=== PATIENT | female | born 1940 | race Caucasian/White ===

== ENCOUNTER → 2019-01-03 | Outpatient (CLI) | payer OTHER ==
[~2019-01-03] VITALS: Ht 152.4 cm; Wt 49.9 kg
[~2019-01-03] MED LIST: ADVIL200 M3 PO; ELIQUIS2.5 MG PO; IMODIUM A-D1 MG/5 ML; OXYCODONE HCL 55 MG PO; TUMS PO; VITAMIN D5000 UNIT PO; ZOFRAN4 MG
[2019-01-03 09:03] LABS: ABSOLUTE LYMPHOCYTES 1.1 thou/uL (0.8-5.3); ABSOLUTE MONOCYTES 0.4 thou/uL (0.0-1.2); ABSOLUTE NEUTROPHILS 3.6 thou/uL (1.6-8.1); BASOPHILS 0.7 %; HEMATOCRIT 39.7 % (37.0-47.0); HEMOGLOBIN 13.5 gm/dL (12.0-15.0); LYMPHOCYTES 22.1 %; MCH 30.4 pg (26.0-34.0); MCHC 34.1 g/dL (28.0-37.0); MCV 89.1 fL (80.0-100.0); MONOCYTES 7.1 %; MPV 7.5 fl. (7.2-11.1); NUCLEATED RBCS 0 /100WBC; PLATELET COUNT* 311 thou/uL (150-400); POLYS 70.1 %; RBC 4.45 mil/uL (4.20-5.00); RDW-CV 14.2 % (10.5-14.5); WBC 5.1 thou/uL (4.0-11.0)
[2019-01-03 09:11] LABS: APTT 27.8 Seconds (25.0-31.3); PROTIME 10.1 Seconds (9.20-11.50)
[2019-01-03 09:16] LABS: ALBUMIN 3.5 g/dL (3.4-5.0); CREATININE 1.1 mg/dL (0.6-1.3); POTASSIUM 3.8 mmol/L (3.5-5.1); TOTAL BILIRUBIN 0.7 mg/dL (<0.1-1.0)
[2019-01-03 10:13] LABS: ESR (SEDRATE) 12 mm/hr (0-30)
--- NOTE | 2019-01-03 16:37 | EKG ---
[place] [address] ELECTROCARDIOGRAM REPORT Name: MYLENE GONZALEZ Room: PRE IN [facility]#: [id number] Admission: Attend Phys: Gunjan Chinchilla Discharge: Date of : 42 Report #: [id number] THIS REPORT FOR: //name// [facility] Test Date: 2019-01-03 Test Time: 09:17:11 Pat Name: MYLENE GONZALEZ Department: Room: Gender: F Basting Marker: YM : 1940 Requested By: Toni Curry Order Number: [id number] Reading MD: Candido Ch Measurements Intervals [place] Rate: 65 P: 62 IA: 176 QRS: -12 QRSD: 130 T: 7 QT: 414 QTc: 431 Interpretive Statements Sinus rhythm Probable left atrial enlargement Right bundle branch block Inferior infarct, old Compared to ECG 09/28/2011 10:13:41 Myocardial infarct finding now present First degree AV block no longer present Electronically Signed On 01-03-2019 16:37:04 CDT by Candido Ch [email or web address] <ELECTRONICALLY SIGNED> By: Candido Ch MD, [facility] 01/03/19 1637 6 6 Candido Ch MD, FAC /EPI
== END ==
LOC: M.LAB 08:00 → EDSTATUS 01-14 10:42 → M.PRE 01-14 10:50
PROVIDERS: Orthopaedic Surgery
DX: M16.11 Unilateral primary osteoarthritis, right hip (principal); I45.10 Unspecified right bundle-branch block; I25.2 Old myocardial infarction

== ENCOUNTER 2019-02-18 07:15 | Inpatient (IN) | payer OTHER ==
[2019-02-13 16:47] LABS: ABSOLUTE LYMPHOCYTES 1.4 thou/uL (0.8-5.3); ABSOLUTE MONOCYTES 0.4 thou/uL (0.0-1.2); BASOPHILS 0.7 %; HEMOGLOBIN 13.2 gm/dL (12.0-15.0); LYMPHOCYTES 23.7 %; MCH 30.9 pg (26.0-34.0); MCHC 33.8 g/dL (28.0-37.0); MCV 91.5 fL (80.0-100.0); MONOCYTES 7.3 %; MPV 8.1 fl. (7.2-11.1); NUCLEATED RBCS 0 /100WBC; PLATELET COUNT* 320 thou/uL (150-400); POLYS 68.3 %; RBC 4.26 mil/uL (4.20-5.00); WBC 5.8 thou/uL (4.0-11.0)
[2019-02-13 16:52] LABS: APTT 27.5 Seconds (25.0-31.3); PROTIME 10.2 Seconds (9.20-11.50)
[2019-02-13 16:55] LABS: ALBUMIN 3.5 g/dL (3.4-5.0); CALCIUM 8.6 mg/dL (8.5-10.1); CREATININE 1.2 mg/dL (0.6-1.3); POTASSIUM 3.6 mmol/L (3.5-5.1); TOTAL BILIRUBIN 0.6 mg/dL (<0.1-1.0); TOTAL PROTEIN 7.1 g/dL (6.4-8.2)
[2019-02-13 17:51] LABS: ESR (SEDRATE) 13 mm/hr (0-30)
[~2019-02-18] VITALS: Ht 149.9 cm; Wt 47.6 kg
--- NOTE | ~2019-02-18 | OP ---
[facility] [address] [place] [address] OPERATIVE REPORT Name: MYLENE GONZALEZ Room: [address] IN .R.#: [id number] Admission: 02/18/19 Attend Phys: Gunjan Chinchilla Discharge: Date of : 42 Report #: [id number] THIS REPORT FOR: //name// CC: Charlotte Rodriguez DATE OF SERVICE: 02/18/2019 PREOPERATIVE DIAGNOSIS: Advanced degenerative joint disease of the right hip. POSTOPERATIVE DIAGNOSIS: Advanced degenerative joint disease of the right hip. OPERATION PERFORMED: Right total hip arthroplasty. IMPLANTS: The Biomet total hip system was used with the following components: 1. A size 12 x 144 high offset Taperloc femoral component. 2. A size 40 mm ceramic head with a -3 mm taper adapter. 3. A size 54 mm G7 finned acetabular shell components. 4. Two 6.5 mm bone screws, 25 and 30 mm in length. SURGEON: Toni Curry DO TEAM SUPERVISOR: Hannah King PA-C and Dawit Nagel DO ESTIMATED BLOOD LOSS: 150 mL. ANTIBIOTICS: 2 g IV Ancef given preoperatively. ANESTHESIA: General plus local infiltration of local anesthetic. DRAINS: None. SPECIMENS: Femoral head and neck were sent to pathology. COMPLICATIONS: None. CONDITION: Stable. DISPOSITION: PACU to Med/Surg floor. OPERATIVE INDICATIONS: The patient is a pleasant 78-year-old female followed in the orthopedic clinic regarding her longstanding right hip pain. She had radiographs which were consistent with severe degenerative changes with loss of joint space, subchondral sclerosis, osteophytic changes as well as subchondral cystic changes. She has tried and failed conservative treatment over the last [facility] [address] [place] [address] OPERATIVE REPORT Name: MYLENE GONZALEZ Room: [address]#: [id number] Admission: 02/18/19 Attend Phys: Gunjan Chinchilla Discharge: Date of : 42 Report #: [id number] several years, including activity modification, anti-inflammatory medications by mouth and injections. Despite trying these things, she now has developed progressive pain, which is interfering with her activities of daily living and her overall quality of life; therefore, we did recommend a right total hip arthroplasty. Risks, indications, and the treatment alternatives were discussed in detail with the patient in the office setting and her informed consent was signed. DESCRIPTION OF PROCEDURE: The patient was identified in the preop holding area where she confirmed the right side to be the operative site and this was marked. She was transferred to the operating suite and placed on the operating Clare table in the supine position, where general anesthesia was then induced. The patient was then positioned within the spars of the Clare table. A well-padded perineal post was placed as well as a seatbelt to secure the patient. The right hip was then sterilely prepped and draped in the usual fashion. Timeout was then performed confirming that our safety checklist have been completed and all the OR personnel was in agreement. The standard anterior incision was marked out approximately 1 cm lateral and 1 cm distal to the ASIS. An approximately 10 cm incision was then carried down through the skin and subcutaneous tissue down to the level of the tensor fascia. Tensor fascia was then split in line with our incision and the plane between the sartorius and TFL was developed. At this time, we exposed our circumflex vessels and these were treated with the Aquamantys before being cauterized. A retractor was then placed at this time and the H capsulotomy was performed with electrocautery. The femoral neck cut was then made from the saddle region down to the level approximately 1 cm proximal to the lesser trochanter. A napkin ring type cut was then made. This was removed with a bone tenaculum. The acetabular labrum was then excised with electrocautery. We then performed reaming of the acetabulum with a size 53 mm reamer. This did leave us with a nice good bleeding bone within the acetabulum. We used C-arm fluoroscopy at this time to confirm the correct version of the reaming and this was then removed. We then impacted the final acetabular shell into the acetabulum using the external guide as well as the C-arm fluoroscopy to confirm the appropriate version and abduction of the final components. Then, the 2 holes were drilled in the posterior superior quadrant for our acetabular screws. Screws were then placed by hand and found to have excellent purchase. X-rays were once again taken to confirm the correct position of these screws. The high wall acetabular liner was then placed superiorly and impacted into position and was confirmed to be locked in. We then took our attention to the femoral side. The leg was externally rotated. The #5 retractors were placed. The hip was extended and we performed releases around the proximal femur of the capsular tissue. The box osteotome was then placed followed by the rattail rasp. We then performed sequential broaching of the femur beginning with a size 4 up to a size 12 and the size 12 was found to give excellent fit and fill of the femur. Therefore, we did use this as our trialling size. The 40 mm head on a -3 trial was then placed and the hip was reduced. We then used C-arm to confirm that our leg lengths were appropriate. We took the leg out of the [facility] [address] [place] [address] OPERATIVE REPORT Name: MYLENE GONZALEZ Room: [address] IN M.R.#: [id number] Admission: 02/18/19 Attend Phys: Gunjan Chinchilla Discharge: Date of : 42 Report #: [id number] spar at this time and took it through a range of motion to confirm that there was excellent stability of the hip and no signs of subluxation or dislocation. The boot was placed back within the spar. We then dislocated the hip once again and the trial components were removed. The hip was copiously irrigated and vancomycin powder was sprinkled throughout the wound at this time. The final femoral component was then placed, which also had excellent fit and fill within the proximal femur and was also down to the same level as the trial component. Therefore, we did proceed with placing the final femoral head and neck components with the 40 mm head with a -3 taper. This was impacted onto the Deleon taper and the hip was then finally reduced, once again taken through a motion, found to be very stable. Final C-arm fluoroscopy images were taken and saved. The leg lengths were appropriate. The wound was once again copiously irrigated. The local anesthetic was injected into the surrounding tissues. The tensor fascia was closed with the Stratafix suture. The subcutaneous layer was then reapproximated with a 2-0 Monocryl suture in a buried fashion followed by a running subcuticular layer with 3-0 Stratafix. Skin glue was applied and allowed to dry, followed by a Mepilex bandage. Thigh high CELINA hose were also applied. Sponge and needle counts reported correct per the OR personnel. The patient was awakened from general anesthetic and transferred to the PACU in stable condition with no apparent complications. ATTESTATION: Dr. Toni Crury was present for all the vital portions of the procedure. By: 1718 Soto Curry DO /nt
[~2019-02-18 07:15] MED LIST changes: -ELIQUIS2.5 MG PO; -OXYCODONE HCL 55 MG PO; -VITAMIN D5000 UNIT PO
[2019-02-18] MEDS ORDERED: VITAMIN D5000 UNIT PO (10:02)
[2019-02-18 11:02] VITALS: BP 152/83
[2019-02-18 17:25] VITALS: BP 109/64
[2019-02-18 19:50] VITALS: BP 110/61
[2019-02-18 23:59] VITALS: BP 104/56
[2019-02-19 04:18] VITALS: BP 97/56
[2019-02-19 05:11] LABS: HEMOGLOBIN 10.3 gm/dL (12.0-15.0)
[2019-02-19 08:18] VITALS: BP 105/53
[2019-02-19 16:00] VITALS: BP 144/71
[2019-02-19 21:20] VITALS: BP 135/62
[2019-02-20] VITALS: BP 130/58
[2019-02-20 04:00] VITALS: BP 134/60
[2019-02-20 05:29] LABS: HEMOGLOBIN 10.5 gm/dL (12.0-15.0)
[2019-02-20 08:50] VITALS: BP 125/61
--- NOTE | 2019-02-20 15:07 | PATH ---
[address] [address] PATHOLOGY RPT PROCEDURE Name: MYLENE GONZALEZ Room: [address] IN ..#: [id number] Admission: 02/18/19 Date of : 42 Discharge: Report #: [id number] Path Case #: [id number] [facility] Accession Number: [id number] . 01 Material submitted: . femur - RIGHT FEMORAL HEAD. Modifiers: right, head . 01 Clinical history: . Right hip DJD . 02 Diagnosis: Right femoral head: - Benign femoral head tissues with severe cystic degenerative changes. . (PARTHA:mml; 02/20/2019) QL 02/20/2019 1232 Local . 02 Electronically signed: . Ricky English MD, Pathologist NPI- [id number] . 01 Gross description: . The specimen is received in formalin, labeled "Mylene Gonzalez, right femoral head". Received is a femoral head measuring 4.9 x 4.9 x 4.0 cm in greatest dimensions. Also received within the specimen container are additional segments of light barney to red-brown bone measuring 9.1 x 7.2 x 3.0 cm in aggregate dimensions. The articular surface of the femoral head is light barney to pink-barney and irregular in contour with evidence of eburnation. Sectioning reveals yellow-barney cut surfaces with no grossly distinct nodules or lesions. The specimen is submitted representatively in cassette A1, following decalcification. (CAA; 02/19/2019) QAC/QAC 02/19/2019 1029 Local . 02 Pathologist provided ICD-10: M16.11 . 02 CPT . 086968, 390307 Specimen Comment: A courtesy copy of this report has been sent to Specimen Comment: [phone], , . Specimen Comment: Report sent to ,DR MOCTEZUMA / DR OBANDO Performed at: [address] [place] [id number] MD Isaías Sanchez MD Phone: [phone] Performed at: [address] [place] [address] PATHOLOGY RPT PROCEDURE Name: MYLENE GONZALEZ Room: [address] IN [facility].#: [id number] Admission: 02/18/19 Date of : 42 Discharge: Report #: [id number] Path Case #: [id number] [address], [place] [id number] MD Ricky English MD Phone: [phone]
[2019-02-20 16:11] VITALS: BP 125/50
[2019-02-20 20:00] VITALS: BP 109/50; BP 126/50
[2019-02-21 07:50] VITALS: BP 135/68
[2019-02-21] MEDS ORDERED: ELIQUIS2.5 MG PO (11:12)
[2019-02-21] MEDS ORDERED: OXYCODONE HCL 55 MG PO (11:13)
[2019-02-21 11:14] VITALS: BP 135/68
== END 2019-02-21 15:30 | DRG 470 ==
LOC: M.PRE 07:15 → M.TBA 09:41 → M.ORTHSURG 09:41 → M.PRE 11:03 → M.ORTHSURG 17:10
PROVIDERS: Orthopaedic Surgery; ADMIT Internal Medicine
PROC: 0SR903Z Replacement of Right Hip Joint with Ceramic Synthetic Substitute, Open Approach (ICD-10-PCS; principal; 2019-02-18)
DX: M16.11 Unilateral primary osteoarthritis, right hip (principal); D62 Acute posthemorrhagic anemia; Z88.1 Allergy status to other antibiotic agents; Z88.8 Allergy status to other drugs, medicaments and biological substances; Z90.49 Acquired absence of other specified parts of digestive tract; Z82.49 Family history of ischemic heart disease and other diseases of the circulatory system; Z79.899 Other long term (current) drug therapy

== ENCOUNTER → 2019-03-07 | Outpatient (CLI) | payer OTHER ==
[~2019-03-07] MED LIST changes: +ELIQUIS2.5 MG PO; +OXYCODONE HCL 55 MG PO; +VITAMIN D5000 UNIT PO
== END ==
LOC: M.WC 07:51
DX: T81.89XA Other complications of procedures, not elsewhere classified, initial encounter (principal); F32.9 Major depressive disorder, single episode, unspecified; Y92.89 Other specified places as the place of occurrence of the external cause; Y83.8 Other surgical procedures as the cause of abnormal reaction of the patient, or of later complication, without mention of misadventure at the time of the procedure

== ENCOUNTER → 2020-11-23 | Outpatient (CLI) | payer OTHER ==
--- NOTE | 2020-11-23 18:02 | EXE ---
[place] [address] STRESS ECHOCARDIOGRAM Name: MYLENE GONZALEZ Room: [facility]#: [id number] Admission: 11/23/20 Attend Phys: Charlotte Nolan DO Discharge: Date of : 42 Date of Service: 11/23/20 1802 Report #: [id number] THIS REPORT FOR: cc: Charlotte Nolan Maggie M. DO Blick, David R. MD [facility] ~ APPROVED REPORT Study performed: 11/23/2020 14:48:43 Exam: Stress Echocardiogram Indication: Chest pain , Dyspnea Patient Location: Out-Patient Stress Nurse: Ana Gaitan RN Supervising Physician: Ever Daley MD Ht: 4 ft 11 in HR: 79 bpm BP: 149/75 mmHg Medical History Cardiac Risk Factors: Age, , FHX of CAD Procedure The patient underwent an Exercise Stress Test using the Mayur Protocol. Blood pressure, heart rate, and EKG were monitored. An Echocardiogram was performed by biodiesel process control technician in four stages in quad fashion. At peak stress, four selected images were obtained and placed side by side with resting images for comparison. Stress Test Details Stress Test: Exercise stress testing was performed using a Mayur protocol. HR Resting HR: 79 bpm Max Heart Rate (APMHR): 141 bpm Max HR Achieved: 143 bpm Target HR (85% APMHR): 119 bpm % of APMHR: 101 Recovery HR: 79 bpm HR response to stress: Normal HR response to stress BP Resting BP: 149/75 mmHg Max BP: 202/91 mmHg Recovery BP: 175/90 mmHg BP response to stress: [place] [address] STRESS ECHOCARDIOGRAM Name: MYLENE GONZALEZ Room: [facility]#: [id number] Admission: 11/23/20 Attend Phys: Charlotte Nolan DO Discharge: Date of : 42 Date of Service: 11/23/20 1802 Report #: [id number] stress. ECG Resting ECG: Sinus Rhythm, RBBB Stress ECG: Sinus Rhythm, RBBB ST Change: None Maximum ST Deviation: 0 mm Arrhythmia: VPC's Recovery ECG: Sinus Rhythm, RBBB Recovery ST Change: None Recovery ST Deviation: 0.5 mm Recovery Arrhythmia: VPC Clinical Reason for Termination: Completed protocol Exercise duration: 5 min sec Highest Stage Achieved: Stage 2: 2.5 mph at 12% grade. Exercise capacity: 4.64 METs Pre-Stress Echo The resting Echocardiogram showed normal left ventricular contractility with an estimated Ejection Fraction of about 60-65%. Post-Stress Echo The stress Echocardiogram showed normal left ventricular contractility with an estimated Ejection Fraction of about 65-70%. Compared to rest, there were no stress-induced wall motion abnormalities. Conclusion Clinical Response: Non-ischemic Exercise Capacity: Average Stress ECG Response: Indeterminant Stress Echo Images: Non-ischemic low risk stress echo for predicting future cardiac events Other Information Study Quality: Good <Conclusion> low risk stress echo for predicting future cardiac events <ELECTRONICALLY SIGNED> By: Ever Daley MD, [facility] 11/23/201801 01 01 Ever Daley MD, FACC /INF
== END ==
LOC: M.CRD 14:20
PROVIDERS: ATTEND Family Medicine
DX: R07.81 Pleurodynia (principal); R06.02 Shortness of breath; R07.9 Chest pain, unspecified; Z68.23 Body mass index [BMI] 23.0-23.9, adult; R23.1 Pallor